=== PATIENT | female | born 1990 ===

== ENCOUNTER 2016-12-28 06:39 | Inpatient (IN) ==
[2016-12-28] MEDS ORDERED: MEPERIDINE 50 MG/1 ML VIAL IV PRN (07:22)
[2016-12-28] MEDS ORDERED: ONDANSETRON 4 MG/2 ML VIAL IV PRN (07:22)
[2016-12-28] MEDS ORDERED: BUTORPHANOL 2 MG/ML VIAL IV PRN (07:22)
[2016-12-28] MEDS ORDERED: DINOPROSTONE VAG GEL 10 MG SYRINGE VAG ONE (07:24)
[2016-12-28] MEDS: LACTATED RINGERS 1,000 ML IV SCH ×2 (07:38→13:10)
[2016-12-28 07:42] LABS: Basophils % 0.4 % (0.0-0.8); Eosinophils # 0.2 10*3/uL (0.0-0.87); Eosinophils % 2.4 % (0.00-10.9); Hematocrit 35.4 VOL% (35.7-47.0); Hemoglobin 12.2 GM/DL (12.0-16.0); Immature Granulocytes % 0.5 %; Immature Granulocytes Absolute 0.04 #; Lymphocytes # 1.7 10*3/uL (1.4-4.0); Lymphocytes % 22.1 % (21.3-54.2); Mean Corpuscular HGB Conc 34.5 GM/DL (32-36); Mean Corpuscular Hemoglobin 33 PG (27-34); Mean Corpuscular Volume 95.7 FL (87-102); Mean Platelet Volume 10.6 FL (9.6-12.0); Monocytes # 0.8 10*3/uL (0.11-0.8); Monocytes % 9.8 % (1.7-12.7); Neutrophils # 5.1 10*3/uL (1.4-7.4); Neutrophils % 64.8 % (38.7-73.9); Platelet Count 143 T/CUMM (130-400); Red Cell Distribution Width 12.8 % (9.3-17.3); White Blood Count 7.8 T/CUMM (4-12)
[2016-12-28 08:09] LABS: Alanine Aminotransferase 18 U/L (13-56); Albumin 2.6 G/DL (3.4-5.0); Alkaline Phosphatase 131 U/L (45-117); Aspartate Amino Transferase 15 U/L (0-37); Bilirubin,Total < 0.39 MG/DL (0.2-1.0); Blood Urea Nitrogen 8 MG/DL (7-18); Calcium 8.4 MG/DL (8.5-10.1); Glucose 109 MG/DL (74-106); Osmolality,Calculated 275.5 MOS/KG (273-304); Potassium 3.7 MMOL/L (3.5-5.1); Sodium 139 MMOL/L (136-145); Total Protein 6.4 G/DL (6.4-8.3)
--- NOTE | 2016-12-28 10:07 | OB/GYN History & Physical ---
History of Present Illness Chief complaint: In for elective induction of labor due to IUGR. History of present illness: Ms. Tirado is a 26 year old female who is a 3 para 1 living 1 AB 1. Her ABHILASH is 8-17 estimated gestational age of 37 weeks and 5 days. The patient presents for induction of labor due to IUGR and grade 3 placenta. The risk and benefits of been thoroughly discussed with this patient and significant other, plan of care has been discussed with Dr. Boateng and all parties are in agreement plan. The patient received her care through the [facility] and her has been complicated with grade 3 placenta and the IUGR. She had a previous vaginal delivery of a liveborn infant that weighed 6 pounds and 7 ounces and she reported no complications with that . labs: She is O+, antibody negative, RPR is nonreactive, rubella is immune, hepatitis B negative, HIV negative, GBS culture negative. Review of systems is negative with exception of above. Home Medications Medication Instructions Recorded Confirmed Type No122/Iron/Folic Acid 1 each PO DAILY 11/24/16 12/28/16 History [ Multi Tablet] Allergies Allergy/AdvReac Type Severity Reaction Status Date / Time No Known Allergies Allergy Verified 11/24/16 16:11 12 point system: reviewed and no additional remarkable complaints except as stated Medical,Surgical,& Family Hx - Medical History Medical History: noncontributory Reproductive: No history of: Ectopic , Complication - Surgical History Abdominal Surgeries: Surgical HX of: Abdominal Surgery, Appendectomy Reproductive Surgeries: Surgical HX of;: Dilation and Curettage Patient denies;: Section - Family History Family History: Reports;: Family Diabetes - Social History Smoking Status: Never smoker Frequency of Alcohol Use: None Type of Drug Use: None Marital Status: Single Lives With:: Significant Other Functional capacity: independent ambulation 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 Vitals: Vital Signs Pulse Resp BP Pulse Ox 12/28/16 07:25 84 20 122/64 99 General appearance: no acute distress - Antepartum / Post Antepartum Exam Cervix - Dilatation: 2 cm Effacement: 50% Station: -3 Rupture: Intact Presentation: Vertex Heart Rate: 120s Breast: bilateral: normal Abdomen obstetrics: Present: bowel sounds normal Vagina: Present: normal moisture Uterus exam: Present: enlarged Anus/Rectum: Present: normal perianal skin - Head Head exam: Present: normal inspection - Respiratory Respiratory exam: Present: clear to auscultation bilaterally - Cardiovascular Cardiovascular exam: Present: regular rate and rhythm - GI/Abdominal GI/Abdominal exam: Present: normal bowel sounds, soft - Extremities Exam Extremities exam: Present: normal inspection - Back Exam Back exam: Present: normal inspection - Neurological Exam Neurological exam: Present: alert, oriented X3 - Psychiatric Psychiatric exam: Present: normal affect, normal mood - Skin Skin exam: Present: normal color, warm Assessment and Plan (1) IUGR (intrauterine growth restriction) Status: Acute Assessment and plan: Admit IV fluids Prostin gel per protocol IV Pitocin per protocol if indicated Epidural anesthesia if desired Artificial rupture membranes when appropriate Anticipate Current Visit: Yes (2) Grade 3 placenta Status: Acute Assessment and plan: Same as above Current Visit: Yes Results - Labs CBC & BMP: 12/28/16 07:34 12/28/16 07:34 Quality Measures - VTE Contraindication to Pharmacological VTE Prophylaxis: Continuous Epidural Infusion
[2016-12-28] MEDS ORDERED: AMPICILLIN INJ 2,000 MG in SODIUM CHLORIDE 0.9% 100 ML IV ONE (12:32)
[2016-12-28] MEDS ORDERED: SODIUM CHLORIDE 0.9% 100 ML IV ONE (12:37)
[2016-12-28] MEDS ORDERED: AMPICILLIN 2,000 MG VIAL ONE (12:37)
[2016-12-28] MEDS ORDERED: ePHEDrine 50 MG/ML AMP IV PRN (13:07)
[2016-12-28] MEDS ORDERED: CITRIC ACID/SODIUM CITRATE 30 ML UDCUP PO ONE (13:07)
[2016-12-28] MEDS ORDERED: diphenhydrAMINE 50 MG/1 ML VIAL IV PRN ×2 (13:07)
[2016-12-28] MEDS ORDERED: FAMOTIDINE 20 MG/2 ML VIAL IV ONE (13:07)
[2016-12-28] MEDS ORDERED: fentaNYL 2 MCG/ROPIV 0.2% EPID 150 ML EPIDURAL SCH (13:07)
[2016-12-28] MEDS ORDERED: PROMETHAZINE 25 MG/1 ML VIAL IM ONE (13:07)
[2016-12-28] MEDS ORDERED: hydrOXYzine HCL 25 MG/1 ML VIAL IM PRN (13:07)
[2016-12-28] MEDS ORDERED: OXYTOCIN/LR 20 UNIT/1,000 ML BAG IV SCH (14:00)
[2016-12-28] MEDS ORDERED: AMPICILLIN INJ 1,000 MG in SODIUM CHLORIDE 0.9% 100 ML IV SCH (17:30)
--- NOTE | 2016-12-28 17:30 | Event Note ---
HPI: Ms. Tirado is a 26-year-old who presented to the labor department for IUGR and grade 3 placenta. The risk and benefits were thoroughly discussed with the patient and significant other, plan of care was discussed with Dr. Boateng and all parties were in agreement with plan. Stage I: The patient was admitted she received IV fluids and and Prostin gel. Artificial rupture membranes was also performed when the patient was 5 cm dilated, clear fluid was noted. At 1400 IV Pitocin was started and the patient continued to progress in labor with a CAT 1 tracing. She received IV pain meds and eventually an epidural for pain control. Otherwise she had an uneventful course of labor. Stage II: The patient was complete and complained of pressure and strong desire to push. She pushed for approximately 15 minutes after which time the infant's head was delivered. A nuchal cord 1 was noted and reduced. The mouth and nose suctioned on perineum. The remainder the was delivered at 1707, a viable female was noted. Apgars were 8 at 1 minute and 9 at 5 minutes. weight was 6 pounds and 6 ounces. A cord pH was obtained and sent to the lab. After stabilization the infant was placed on the mom's abdomen for skin to skin bonding. Stage III: A spontaneous delivery of a Martinez placenta with a three-vessel cord noted. The placenta was further examined and had some calcifications on it otherwise no other abnormalities noted. The vagina cervix was inspected with no tears or lacerations noted. Estimated blood loss was approximately 150 cc. The placenta was sent to pathology for further evaluation due to grade 3. At the time of dictation mother and baby are both in stable condition.
[2016-12-28] MEDS ORDERED: ACETAMINOPHEN/CODEINE 300-30 MG TABLET PO PRN (17:33)
[2016-12-28] MEDS ORDERED: BENZOCAINE 20%/MENTHOL 0.5% SPRAY 56 GM CAN TOP PRN (20:50)
[2016-12-28] MEDS ORDERED: MEASLES/MUMPS/RUBELLA VACCINE 0.5 ML VIAL SUBCUT ONE (20:50)
[2016-12-28] MEDS ORDERED: RHO(D) IMMUNE GLOBULIN 300 MCG SYRINGE IM ONE (20:50)
[2016-12-28] MEDS ORDERED: WITCH HAZEL PADS 100/JAR TOP PRN (20:50)
[2016-12-28] MEDS ORDERED: oxyCODONE/ACETAMINOPHEN 5-325 MG TABLET PO PRN (20:50)
[2016-12-28] MEDS ORDERED: HYDROCORTISONE 2.5% RECTAL CREAM 30 GM TUBE TOP PRN (20:50)
[2016-12-28] MEDS ORDERED: LANOLIN 50% CREAM 0.3 OZ TUBE TOP PRN (20:50)
[2016-12-28] MEDS ORDERED: BISACODYL 10 MG SUPP RECTAL PRN (20:50)
[2016-12-28] MEDS ORDERED: DIPH/TET/ACEL PERT BOOSTER VACCINE 0.5 ML VIAL IM ONE (20:50)
[2016-12-28] MEDS ORDERED: ACETAMINOPHEN 325 MG TABLET PO PRN (20:50)
[2016-12-28] MEDS: IBUPROFEN 800 MG TABLET PO PRN (21:10)
[2016-12-28] MEDS: DOCUSATE SODIUM 100 MG CAPSULE PO SCH (21:11)
[2016-12-29] MEDS: DOCUSATE SODIUM 100 MG CAPSULE PO SCH ×2 (08:33→21:09)
[2016-12-29] MEDS: IBUPROFEN 800 MG TABLET PO PRN ×2 (09:47→23:17)
[2016-12-29] MEDS: oxyCODONE/ACETAMINOPHEN 5-325 MG TABLET PO PRN ×2 (09:48→23:18)
--- NOTE | 2016-12-29 19:37 | Anesthesia Post-Op ---
Anesthesia Post OP - Post Ansesthetic Evaluation Patient seen in post op: Yes Resp: within normal limits CV: within normal limits Mental: within normal limits Temp: within normal limits Cypp-Le-Lbrowafdx: within normal limits Nausea and Vomiting: within normal limits Pain: within normal limits
--- NOTE | 2016-12-29 20:52 | Progress Note ---
Family Medicine PN Sub Interval history: Status post vaginal day #1 Lungs are clear, cardiac exam benign Abdomen soft and nontender Uterus is nice and firm Extremities well no limits neurologic grossly intact. Status post vaginal Possible discharge in a.m. Exam (Progress Note) - Constitutional Vitals: Period Temp Pulse Resp BP Sys/Schwartz Pulse Ox Last 24 Hr 97 F-98.4 F 71-82 18-20 90-118/48-74 96-99 Results - Labs CBC & BMP: 12/28/16 07:34 12/28/16 07:34 Quality Measures - VTE Contraindication to Pharmacological VTE Prophylaxis: Continuous Epidural Infusion Specialty Discharge - Follow Up or Referrals
[2016-12-30 07:21] VITALS: BP 105/56
[2016-12-30] MEDS: IBUPROFEN 800 MG TABLET PO PRN (07:53)
[2016-12-30] MEDS: DOCUSATE SODIUM 100 MG CAPSULE PO SCH (08:41)
--- NOTE | 2016-12-30 09:19 | Discharge Summary ---
Hospital Course - Hospital Course Hospital Course: Ms. Tirado is a 26-year-old female who presented for induction of labor due to term . The patient subsequently delivered a viable with no complications. She has followed a normal course and she has done well. Her bleeding is minimal with no odor. Her fundus is firm and midline. Her perineum is intact. She is bonding well with her . Her vital signs and lab values are stable. She will be discharged home with prescriptions for pain and a follow-up appointment in our office. Diagnosis - Discharge Diagnosis (1) IUGR (intrauterine growth restriction) Status: Acute (2) Grade 3 placenta Status: Acute Specialty Discharge - Follow Up or Referrals Follow up with: Italia Boateng MD [Physician] - (Follow-up in 6 weeks) Discharge Plan - Discharge Data Disposition: Disch To Home/Self Care Condition at Discharge: Stable Discharge Diet: advance to your usual diet, regular diet Activity: resume usual activities as tolerated Hygiene: no restrictions, may shower Weight Bearing at Discharge: weight bear as tolerated Driving: no restrictions Contact your physician if you experience:: fever over 101, pain uncontrolled by pain medications - Discharge Medications New Ibuprofen Tab [Motrin Tab] 800 mg PO Q6H PRN #30 tablet PRN Reason: Pain Moderate (4-7) Acetamin/Codeine 300-30 Tab [Tylenol/Codeine #3] 2 tablet PO Q4H PRN #30 tablet PRN Reason: Pain Mild (1-3) No Action No122/Iron/Folic Acid [ Multi Tablet] 1 each PO DAILY - Follow Up or Referral - Forms/Instructions Instructions: Perineal Care (DC), Vaginal Delivery (DC), Bleeding (DC) Exam - Constitutional Vitals: Period Temp Pulse Resp BP Sys/Schwartz Pulse Ox Last 24 Hr 97 F-97.9 F 71-77 18-20 91-108/53-69 97-98 General appearance: normal weight, no acute distress - Head Head exam: Present: normal inspection - Respiratory Respiratory exam: Present: clear to auscultation bilaterally - Cardiovascular Cardiovascular exam: Present: regular rate and rhythm - GI/Abdominal GI/Abdominal exam: Present: normal bowel sounds, soft - Extremities Exam Extremities exam: Present: normal inspection - Neurological Exam Neurological exam: Present: alert, oriented X3 - Psychiatric Psychiatric exam: Present: normal affect, normal mood - Skin Skin exam: Present: normal color, warm DS: Provider Date of admission: 12/28/16 07:22 Primary care physician: Marly Boyce MD Attending physician on admission: Italia Boateng MD Consults: 12/28/16 07:22 Consult to Anesthesiology [CONS] Routine Consulting Provider: Reason for Anesthesiology: Epidural Consult Comment: Epidural for pain managment 12/28/16 20:50 Consult to Car Mechanic Helper [CONS] Routine Consult Car Mechanic Helper: Breast Feeding Discharging clinician: Kaur Dill CNM Expected date of discharge: 12/30/16
--- NOTE | 2016-12-30 12:21 | Pathology Report from [facility] ---
[facility] ACCESSION # : [id number] PATIENT NAME : Aria Meza. ORDERING DR : LARA WATKINS MD CLINICAL HX: IUP @ 37.5 wks gestation, Grade III placenta noted on U/S POST-OP DX: Same SPECIMEN INFO: Placenta GROSS DESCRIPTION: Received fresh labeled with the patients name and consists of a 357 gram placenta measuring 18.6 x 13.4 x 1.5 cm. membranes are pink -arango and slightly opaque. The umbilical cord is centrally inserted, contains three vessels and measures 24.5 cm. The umbilical cord is edematous. The surface is dark worley-pink. The maternal surface is hemorrhagic with adherent clotted blood present and intact mildly disrupted cotyledons. No gross abnormalities on sectioning. Sections submitted: A membranes and cord, B and maternal surfaces. DIAGNOSIS FOR ARIA MEZA: PLACENTA, MEMBRANES, UMBILICAL CORD: Focal placental infarction with dystrophic calcification, attached blood clot. Tri- vessel umbilical cord, eccentrically inserted. Membranes with focal chronic inflammation and attached blood. COLLECTED DATE: 12/29/2016 [facility] REPORT DATE: 12/30/2016 ELECTRONICALLY SIGNED BY: Kristin Swann M.D. 12/30/2016 - 10:34:25 GERALDINE
== END 2016-12-30 13:00 | disposition home or self-care (01) | DRG 560 ==
LOC: N.LDOUT 06:39 → N.LD 06:40 → N.OB 20:35
PROVIDERS: ADMIT Obstetrics & Gynecology; ATTEND Obstetrics & Gynecology

== ENCOUNTER 2018-01-25 07:19 | Inpatient (IN) ==
[2018-01-25] MEDS ORDERED: ONDANSETRON 4 MG/2 ML VIAL IV PRN (07:52)
[2018-01-25] MEDS ORDERED: LIDOCAINE 1% 50 ML VIAL MISC INJ ONE (07:52)
[2018-01-25] MEDS ORDERED: MEPERIDINE 50 MG/1 ML VIAL IM PRN (07:52)
[2018-01-25] MEDS ORDERED: LACTATED RINGERS 1,000 ML IV SCH ×2 (08:00→10:00)
[2018-01-25] MEDS ORDERED: OXYTOCIN/LR 20 UNIT/1,000 ML BAG IV SCH (08:00)
[2018-01-25 08:29] LABS: Basophils % 0.5 % (0.0-0.8); Eosinophils # 0.2 10*3/uL (0.0-0.87); Eosinophils % 2.4 % (0.00-10.9); Hematocrit 34.7 VOL% (35.7-47.0); Hemoglobin 11.7 GM/DL (12.0-16.0); Immature Granulocytes % 0.3 %; Immature Granulocytes Absolute 0.02 #; Lymphocytes # 1.6 10*3/uL (1.4-4.0); Lymphocytes % 25.7 % (21.3-54.2); Mean Corpuscular HGB Conc 33.7 GM/DL (32-36); Mean Corpuscular Hemoglobin 32 PG (27-34); Mean Corpuscular Volume 94.3 FL (87-102); Mean Platelet Volume 11.4 FL (9.6-12.0); Monocytes # 0.6 10*3/uL (0.11-0.8); Monocytes % 8.9 % (1.7-12.7); Neutrophils % 62.2 % (38.7-73.9); Platelet Count 116 T/CUMM (130-400); Red Blood Count 3.68 MC/CUMM (3.8-5.5); Red Cell Distribution Width 13.3 % (9.3-17.3); White Blood Count 6.4 T/CUMM (4-12)
[2018-01-25 09:08] LABS: Alanine Aminotransferase 20 U/L (13-56); Albumin 2.5 G/DL (3.4-5.0); Alkaline Phosphatase 137 U/L (45-117); Aspartate Amino Transferase 17 U/L (0-37); Bilirubin,Total < 0.39 MG/DL (0.2-1.0); Blood Urea Nitrogen 7 MG/DL (7-18); Calcium 8.2 MG/DL (8.5-10.1); Glucose 85 MG/DL (74-106); Osmolality,Calculated 277.3 MOS/KG (273-304); Potassium 3.7 MMOL/L (3.5-5.1); Sodium 141 MMOL/L (136-145); Total Protein 6.5 G/DL (6.4-8.3)
[2018-01-25] MEDS ORDERED: ePHEDrine 50 MG/ML AMP IV PRN (09:33)
[2018-01-25] MEDS ORDERED: LACTATED RINGERS 1,000 ML IV ONE (09:33)
[2018-01-25] MEDS ORDERED: CITRIC ACID/SODIUM CITRATE 30 ML UDCUP PO ONE (09:33)
[2018-01-25] MEDS ORDERED: FAMOTIDINE 20 MG/2 ML VIAL IV ONE (09:33)
[2018-01-25] MEDS ORDERED: diphenhydrAMINE 50 MG/1 ML VIAL IV PRN ×2 (09:34)
[2018-01-25] MEDS ORDERED: PROMETHAZINE 25 MG/1 ML VIAL IM ONE (09:34)
[2018-01-25] MEDS ORDERED: LACTATED RINGERS 250 ML IV PRN (09:34)
[2018-01-25] MEDS ORDERED: hydrOXYzine HCL 25 MG/1 ML VIAL IM PRN (09:34)
[2018-01-25] MEDS ORDERED: fentaNYL 2 MCG/ROPIV 0.2% EPID 150 ML EPIDURAL SCH (10:00)
[2018-01-25] MEDS ORDERED: miSOPROStol 200 MCG TABLET ONE (13:26)
[2018-01-25] MEDS ORDERED: METHYLERGONOVINE 0.2 MG/1 ML AMP ONE (13:27)
[2018-01-25 14:57] LABS: Cord Venous Blood HCO3 22.5 MMOL/L; Cord Venous Blood PCO2 43.3 MMHG; Cord Venous Blood PO2 30.9
[2018-01-25 15:00] LABS: Cord Arterial Blood HCO3 20.3 MMOL/L
[2018-01-25] MEDS ORDERED: OXYTOCIN/LR 20 UNIT/1,000 ML BAG IV ONE (16:12)
[2018-01-25] MEDS ORDERED: HYDROCORTISONE 2.5% RECTAL CREAM 30 GM TUBE TOP PRN (18:03)
[2018-01-25] MEDS ORDERED: BISACODYL 10 MG SUPP RECTAL PRN (18:03)
[2018-01-25] MEDS ORDERED: ACETAMINOPHEN 325 MG TABLET PO PRN (18:03)
[2018-01-25] MEDS ORDERED: LANOLIN 50% CREAM 0.3 OZ TUBE TOP PRN (18:03)
[2018-01-25] MEDS ORDERED: MEASLES/MUMPS/RUBELLA VACCINE 0.5 ML VIAL SUBCUT ONE (18:03)
[2018-01-25] MEDS ORDERED: DIPH/TET/ACEL PERT BOOSTER VACCINE 0.5 ML VIAL IM ONE (18:03)
[2018-01-25] MEDS ORDERED: RHO(D) IMMUNE GLOBULIN 300 MCG SYRINGE IM ONE (18:03)
[2018-01-25] MEDS ORDERED: WITCH HAZEL PADS 100/JAR TOP PRN (18:03)
[2018-01-25] MEDS ORDERED: oxyCODONE/ACETAMINOPHEN 5-325 MG TABLET PO PRN ×2 (18:03)
[2018-01-25] MEDS ORDERED: BENZOCAINE 20%/MENTHOL 0.5% SPRAY 56 GM CAN TOP PRN (18:03)
[2018-01-25] MEDS: ACETAMINOPHEN/CODEINE 300-30 MG TABLET PO PRN ×2 (19:38→23:34)
[2018-01-25] MEDS: IBUPROFEN 800 MG TABLET PO PRN (19:38)
[2018-01-25] MEDS: DOCUSATE SODIUM 100 MG CAPSULE PO SCH (21:58)
[2018-01-26 06:57] LABS: Basophils % 0.2 % (0.0-0.8); Eosinophils # 0.2 10*3/uL (0.0-0.87); Eosinophils % 2.2 % (0.00-10.9); Hematocrit 32.1 VOL% (35.7-47.0); Hemoglobin 10.6 GM/DL (12.0-16.0); Immature Granulocytes % 0.2 %; Immature Granulocytes Absolute 0.02 #; Lymphocytes # 2.3 10*3/uL (1.4-4.0); Lymphocytes % 28.1 % (21.3-54.2); Mean Corpuscular Hemoglobin 32 PG (27-34); Mean Corpuscular Volume 95.3 FL (87-102); Mean Platelet Volume 11.6 FL (9.6-12.0); Monocytes # 0.6 10*3/uL (0.11-0.8); Monocytes % 7.2 % (1.7-12.7); Neutrophils # 5.2 10*3/uL (1.4-7.4); Neutrophils % 62.1 % (38.7-73.9); Platelet Count 104 T/CUMM (130-400); Red Blood Count 3.37 MC/CUMM (3.8-5.5); Red Cell Distribution Width 13.2 % (9.3-17.3); White Blood Count 8.3 T/CUMM (4-12)
[2018-01-26] MEDS: DOCUSATE SODIUM 100 MG CAPSULE PO SCH ×2 (09:34→21:09)
[2018-01-26] MEDS: IBUPROFEN 800 MG TABLET PO PRN (14:15)
[2018-01-26] MEDS: ACETAMINOPHEN/CODEINE 300-30 MG TABLET PO PRN (15:27)
[2018-01-27] MEDS: ACETAMINOPHEN/CODEINE 300-30 MG TABLET PO PRN (04:05)
[2018-01-27 07:48] VITALS: BP 110/64
[2018-01-27] MEDS: DOCUSATE SODIUM 100 MG CAPSULE PO SCH (09:51)
== END 2018-01-27 11:45 | disposition home or self-care (01) | DRG 560 ==
LOC: N.LDOUT 07:19 → N.LD 07:22 → N.OB 17:44
PROVIDERS: ADMIT Obstetrics & Gynecology; ATTEND Obstetrics & Gynecology

== ENCOUNTER 2019-03-10 00:10 | Inpatient (IN) ==
[2019-03-10 00:57] LABS: Apearance,Urine CLEAR (Clear); Bilirubin,Urine Negative (Negative); Blood, Urine Negative (Negative); Glucose,Urine (UA) Negative (Negative); Ketones,Urine Negative (Negative); Mucus,Urine Few /LPF (Occasional); Nitrite,Urine Negative (Negative); Protein,Urine Negative; RBC,Urine 1 /HPF (0-4); Squamous Epithelial Cell,Urine Occasional /HPF (0-10); Urine Color Yellow (Yellow); WBC,Urine 22 /HPF (0-6)
[2019-03-10] MEDS: LACTATED RINGERS 1,000 ML IV SCH ×2 (02:05→10:58)
[2019-03-10] MEDS ORDERED: ONDANSETRON 4 MG/2 ML VIAL IV PRN (03:11)
[2019-03-10] MEDS ORDERED: LACTATED RINGERS 500 ML IV PRN (03:11)
[2019-03-10] MEDS ORDERED: MEPERIDINE 50 MG/1 ML VIAL IV PRN (03:11)
[2019-03-10 03:30] LABS: Basophils % 0.5 % (0.0-0.8); Eosinophils # 0.1 10*3/uL (0.0-0.87); Hematocrit 35.8 VOL% (35.7-47.0); Hemoglobin 11.3 GM/DL (12.0-16.0); Immature Granulocytes % 0.3 %; Immature Granulocytes Absolute 0.02 #; Lymphocytes # 1.5 10*3/uL (1.4-4.0); Lymphocytes % 24.5 % (21.3-54.2); Mean Corpuscular HGB Conc 31.6 GM/DL (32-36); Mean Corpuscular Volume 93.7 FL (87-102); Mean Platelet Volume 11.1 FL (9.6-12.0); Monocytes % 8.9 % (1.7-12.7); Neutrophils % 64.8 % (38.7-73.9); Platelet Count 136 T/CUMM (130-400); Red Blood Count 3.82 MC/CUMM (3.8-5.5); White Blood Count 6.1 T/CUMM (4-12)
[2019-03-10] MEDS ORDERED: OXYTOCIN/LR 20 UNIT/1,000 ML BAG IV SCH (03:30)
[2019-03-10 03:59] LABS: Albumin 2.5 G/DL (3.4-5.0); Bilirubin,Total 0.4 MG/DL (0.2-1.0); Osmolality,Calculated 274.5 MOS/KG (273-304); Total Protein 7.1 G/DL (6.4-8.3); Uric Acid 3.6 MG/DL (2.6-6.0)
[2019-03-10 04:13] LABS: Calcium 8.8 MG/DL (8.5-10.1)
[2019-03-10] MEDS ORDERED: CITRIC ACID/SODIUM CITRATE 30 ML UDCUP PO ONE (08:50)
[2019-03-10] MEDS ORDERED: FAMOTIDINE 20 MG/2 ML VIAL IV ONE (08:50)
[2019-03-10] MEDS ORDERED: LACTATED RINGERS 1,000 ML IV ONE (08:50)
[2019-03-10] MEDS ORDERED: NALOXONE 0.4 MG/ML VIAL IV PRN (08:51)
[2019-03-10] MEDS ORDERED: ePHEDrine 50 MG/ML AMP IV PRN (08:51)
[2019-03-10] MEDS ORDERED: PROMETHAZINE 25 MG/1 ML VIAL IM ONE (08:51)
[2019-03-10] MEDS ORDERED: diphenhydrAMINE 50 MG/1 ML VIAL IV PRN ×2 (08:51)
[2019-03-10] MEDS ORDERED: hydrOXYzine HCL 25 MG/1 ML VIAL IM PRN (08:51)
[2019-03-10] MEDS ORDERED: fentaNYL 2 MCG/ROPIV 0.2% EPID 100 ML EPIDURAL SCH (09:00)
[2019-03-10 11:14] LABS: Apearance,Urine CLEAR (Clear); Bilirubin,Urine Negative (Negative); Blood, Urine Negative (Negative); Glucose,Urine (UA) Negative (Negative); Ketones,Urine 20 mg/dL (Negative); Mucus,Urine Occasional /LPF (Occasional); Nitrite,Urine Negative (Negative); Protein,Urine Negative; RBC,Urine 1 /HPF (0-4); Squamous Epithelial Cell,Urine Occasional /HPF (0-10); Urine Color Yellow (Yellow); Urine Specific Gravity 1.014 (1.001-1.035); Urine Urobilinogen < 2.0 EU/DL (0.2-1.0); WBC,Urine <1 /HPF (0-6)
[2019-03-10] MEDS ORDERED: miSOPROStoL 200 MCG TABLET ONE (12:52)
[2019-03-10] MEDS ORDERED: BENZOCAINE 20%/MENTHOL 0.5% SPRAY 56 GM CAN TOP PRN (16:53)
[2019-03-10] MEDS ORDERED: DIPH/TET/ACEL PERT BOOSTER VACCINE 0.5 ML VIAL IM ONE (16:53)
[2019-03-10] MEDS ORDERED: LANOLIN 50% CREAM 0.3 OZ TUBE TOP PRN (16:53)
[2019-03-10] MEDS ORDERED: WITCH HAZEL PADS 100/JAR TOP PRN (16:53)
[2019-03-10] MEDS ORDERED: MEASLES/MUMPS/RUBELLA VACCINE 0.5 ML VIAL SUBCUT ONE (16:53)
[2019-03-10] MEDS ORDERED: BISACODYL 10 MG SUPP RECTAL PRN (16:53)
[2019-03-10] MEDS ORDERED: HYDROCORTISONE 2.5% RECTAL CREAM 30 GM TUBE TOP PRN (16:53)
[2019-03-10] MEDS ORDERED: oxyCODONE/ACETAMINOPHEN 5-325 MG TABLET PO PRN ×2 (16:53)
[2019-03-10] MEDS ORDERED: RHO(D) IMMUNE GLOBULIN 300 MCG SYRINGE IM ONE (16:53)
[2019-03-10] MEDS ORDERED: ACETAMINOPHEN 325 MG TABLET PO PRN (16:53)
[2019-03-10] MEDS: IBUPROFEN 800 MG TABLET PO PRN (17:16)
[2019-03-10] MEDS: DOCUSATE SODIUM 100 MG CAPSULE PO SCH (22:11)
[2019-03-11] MEDS: IBUPROFEN 800 MG TABLET PO PRN ×3 (01:31→23:50)
[2019-03-11 04:41] LABS: Basophils % 0.2 % (0.0-0.8); Eosinophils # 0.1 10*3/uL (0.0-0.87); Eosinophils % 0.9 % (0.00-10.9); Hematocrit 31.6 VOL% (35.7-47.0); Immature Granulocytes % 0.4 %; Immature Granulocytes Absolute 0.04 #; Lymphocytes # 2.2 10*3/uL (1.4-4.0); Lymphocytes % 23.3 % (21.3-54.2); Mean Corpuscular HGB Conc 31.6 GM/DL (32-36); Mean Corpuscular Volume 92.1 FL (87-102); Mean Platelet Volume 11.8 FL (9.6-12.0); Monocytes % 8.9 % (1.7-12.7); Neutrophils % 66.3 % (38.7-73.9); Platelet Count 120 T/CUMM (130-400); Red Blood Count 3.43 MC/CUMM (3.8-5.5); White Blood Count 9.6 T/CUMM (4-12)
[2019-03-11] MEDS: DOCUSATE SODIUM 100 MG CAPSULE PO SCH ×2 (08:39→21:32)
[2019-03-12] MEDS: DOCUSATE SODIUM 100 MG CAPSULE PO SCH (08:08)
[2019-03-12 08:53] VITALS: BP 114/77
[2019-03-12] MEDS: IBUPROFEN 800 MG TABLET PO PRN (14:23)
== END 2019-03-12 16:10 | disposition home or self-care (01) | DRG 560 ==
LOC: N.LDOUT 00:10 → N.LD 00:12 → N.OB 16:18
PROVIDERS: ADMIT Obstetrics & Gynecology; ATTEND Obstetrics & Gynecology